=== PATIENT | female | born 2000 | race Caucasian/White ===

== ENCOUNTER → 2020-05-13 | Outpatient (CLI) | payer SELFPAY | LOC: ZCOL.LAB 14:09 | DX: Z20.828 Contact with and (suspected) exposure to other viral communicable diseases (principal) ==

== ENCOUNTER 2020-07-12 19:54 | Emergency (ER) | payer BC ==
[~2020-07-12] VITALS: Ht 157.5 cm; Wt 61.8 kg
[2020-07-12 20:01] VITALS: TEMP 98.1
[2020-07-12 23:09] VITALS: BP 126/77; PULSE 91
== END 2020-07-12 23:10 | disposition home or self-care (01) ==
LOC: COL.ER 19:54
DX: B34.9 Viral infection, unspecified (principal); R07.9 Chest pain, unspecified; Z20.828 Contact with and (suspected) exposure to other viral communicable diseases
CPT/HCPCS: Q9967